=== PATIENT | male | born 1980 | race Caucasian/White ===

== ENCOUNTER 2017-10-16 13:38 | Emergency (ER) | payer OTHER ==
[~2017-10-16] VITALS: Ht 195.6 cm; Wt 92.3 kg
[2017-10-16 13:55] VITALS: BP 147/80; PULSE 70; TEMP 36.9; O2SAT 100; Ht 195.6 cm; Wt 92.3 kg
[2017-10-16] MEDS ORDERED: AMOX1TAB42 PO (14:24)
[2017-10-16] MEDS ORDERED: TRAM-10 PO (14:24)
--- NOTE | 2017-10-16 17:54 | EMERGENCY ROOM VISIT NOTE ---
History First contact with patient: 14:07 Chief Complaint: EAR PAIN Stated Complaint: EARACHE History of Present Illness The patient is a 37 year old male who presents to the Emergency Room with complaints of left ear pain and drainage. The patient reports that he has had a cold for the past 5 days. He has had some runny nose and sinus congestion with sore throat. He reports an ulcer in the back of his mouth. Yesterday he started to complain of left ear discomfort. When he blew his nose last evening , he felt a pop. He did notice some mild brown drainage from the ear this morning. He denies any fever or chills, and rates his discomfort a 6 out of 10. He denies any history of chronic sinus or ear infections. Review of Systems 10 system review was performed and was negative except for pertinent positives and negatives as indicated in history of present illness Past Medical/Surgical History Medical Problems: (1) No significant past medical history Surgical Problems: (1) No history of previous surgery Family History Unremarkable Social History Smoking Status: Never Smoker Alcohol Use: none Marital Status: Housing Status: lives with family Occupation Status: employed Current/Historical Medications Scheduled Amoxicillin & Pot Clavulanate (Amoxicillin/Clavulanate P), 1 TAB PO BID Scheduled PRN Tramadol (Ultram), 1-2 TAB PO Q4H PRN for Pain Physical Exam Vital Signs Date Time Temp Pulse Resp B/P (MAP) Pulse Ox O2 Delivery O2 Flow Rate FiO2 10/16/17 13:55 36.9 70 18 147/80 100 Room Air Physical Exam CONSTITUTIONAL: Healthy and well nourished. Alert and oriented X 3 with positive affect. HEENT: Normocephalic, atraumatic. Pupils equal, round and reactive. No facial edema noted. Examination of the right ear shows TM bulging, however bony landmarks and light reflex are visible. Examination of the left ear shows significant erythema and bulging of the anterior TM. No perforation noted. Bony landmarks are visible posteriorly, however light reflex is blunted. No air -fluid levels noted. Nares are clear. No tenderness to palpation of the frontal or maxillary sinuses. OROPHARYNX: The patient does have a shallow ulcer on the soft palate. No other buccal lesions, tonsillar hypertrophy, exudates, uvula deviation or angioedema noted. No evidence for Derek's angina or retropharyngeal abscess. NECK: Full active range of motion without discomfort. No JVD or carotid bruits. RESPIRATORY: Clear to auscultation bilaterally with no wheezing, crackles, rhonchi or stridor. CARDIOVASCULAR: Regular rate and rhythm with no murmurs, rubs or gallops. INTEGUMENTARY: No rash or other significant dermatologic conditions noted. NEUROLOGIC: Facial sensations are intact. Medical Decision & Procedures ED Course Patient history and physical exam were performed. Nurse's notes were reviewed. Vital signs were reviewed and were normal. The patient was advised that his clinical exam is consistent with otitis media. The patient was provided a prescription for Augmentin. He was encouraged alternate ibuprofen and Tylenol for pain. He also received a prescription for Ultram as needed for breakthrough pain. The patient was advised that the ulcer in his mouth is consistent with a viral infection. The patient denies any prior history of cold sores. He was advised that if he has any recurrent ulcers in his mouth, he should follow-up with his PCP for further testing. He was also instructed to follow-up with his PCP if his current ear pain is not improving within the next week, or if he has any progressively worsening drainage from the ear. The patient was happy with plan of care, voiced understanding of all discharge instructions, refused any analgesics while in the emergency department, and rated his pain a 4 out of 10 at the time of discharge. Medical Decision [place] Drug Monitoring Program Search Results: patient reviewed within database, no issues identified Medication Reconcilliation Current Medication List: was personally reviewed by sc Blood Pressure Screening Patient's blood pressure: Normal blood pressure Impression Primary Impression: Left otitis media Additional Impression: Oral aphthous ulcer Departure Information Dispostion Home / Self-Care Condition GOOD Prescriptions Tramadol (Ultram) 50 Mg Tab 1-2 TAB PO Q4H Y for Pain, #15 TAB For Initial Treatment Prov: Liam Henderson PA 10/16/17 Amoxicillin & Pot Clavulanate (AMOXICILLIN/CLAVULANATE P) 1 Tab Tab 1 TAB PO BID for 10 Days, #20 TAB Prov: Liam Henderson PA 10/16/17 Referrals No Doctor, Assigned Forms HOME CARE DOCUMENTATION FORM, IMPORTANT VISIT INFORMATION Patient Instructions [facility], ED Otitis Media Acute Adult Additional Instructions Complete all Augmentin antibiotics as prescribed. Ibuprofen 800 mg and/or Tylenol 1000 mg every 8 hours. You may also alternate these medications for more effective pain relief: Ibuprofen --4 HRS--> Tylenol --4 HRS--> ibuprofen --4 HRS--> Tylenol .... Ultram if needed for worse pain. Follow-up with your PCP if symptoms are not improving within the next 3-5 days. If you develop any recurrent ulcerations in the mouth, suggest follow-up with your family doctor for further testing. Problem Qualifiers Primary Impression: Left otitis media Otitis media type: suppurative Chronicity: acute Recurrence: not specified as recurrent Spontaneous tympanic membrane rupture: without spontaneous rupture Qualified Codes: H66.002 - Acute suppurative otitis media without spontaneous rupture of ear drum, left ear
== END 2017-10-16 14:37 | disposition home or self-care (01) ==
LOC: C.EDB 13:41 → C.EDD 14:37
DX: H66.002 Acute suppurative otitis media without spontaneous rupture of ear drum, left ear (principal); K12.0 Recurrent oral aphthae

== ENCOUNTER → 2017-11-21 | Outpatient (CLI) | payer OTHER ==
[~2017-11-21] MED LIST: TRAM-10 PO
--- NOTE | 2017-11-21 10:49 | DIAGNOSTIC IMAGING REPORT ---
CERVICAL SPINE 5 VIEWS HISTORY: Left upper extremity weakness. OTHER SYMPTOMS SIGNS INVOLVING MUSCULOSKELETAL COMPARISON: None. FINDINGS: The cervical spine is visualized from C1 through the superior endplate of T1. There is no fracture. No subluxation. Disc spaces are preserved. Prevertebral soft tissues and the atlantodens interval are intact. Minimal S-shaped scoliosis of the cervicothoracic spine. IMPRESSION: Minimal S-shaped scoliosis of the cervicothoracic spine. Otherwise, normal cervical spine radiograph. Electronically signed by: Ace Bautista M.D. 11/21/2017 10:48 AM Dictated Date/Time: 11/21/2017 10:46 AM
== END | disposition home or self-care (01) ==
LOC: C.RAD1850 10:18
PROVIDERS: ATTEND Family Medicine
DX: R29.898 Other symptoms and signs involving the musculoskeletal system (principal)